=== PATIENT | male | born 1965 | race Caucasian/White ===

== ENCOUNTER 2025-05-13 07:42 | Day surgery (SDC) | payer OTHER ==
[2025-05-13] MEDS ORDERED: NA CHLORIDE 0.9% 500 ML ONE (08:14)
[2025-05-13 08:46] VITALS: BMI 28.7
[2025-05-13 11:18] VITALS: O2SAT 100
[2025-05-13 13:03] VITALS: BP 175/75; TEMP 98.9
== END 2025-05-13 12:59 | disposition home or self-care (01) ==
LOC: DS 07:42
PROVIDERS: ATTEND Radiology Radiation Oncology
DX: D50.9 Iron deficiency anemia, unspecified (principal); D53.8 Other specified nutritional anemias; C15.5 Malignant neoplasm of lower third of esophagus; I10 Essential (primary) hypertension
CPT/HCPCS: 86900; 86850; 86901; 86920 ×2; 36430; P9016 ×2; J7040

== ENCOUNTER 2025-06-09 08:26 | Emergency (ER) | payer OTHER ==
[2025-06-09] MEDS ORDERED: NA CHLORIDE 0.9% 1,000 ML ONE (08:39)
[2025-06-09] MEDS ORDERED: ONDANSETRON 4 MG/2 ML VIAL ONE (08:39)
[2025-06-09] MEDS ORDERED: PANTOPRAZOLE 40 MG INJ ONE ×2 (08:39→10:40)
[2025-06-09 09:37] LABS: Absolute Lymphocytes (CBC) 1.2 K/uL (0.7-4.9); Hematocrit 18.5 % (39.6-49.0); Hemoglobin 6.0 g/dL (13.6-17.9); MCH 26.2 pg (27.0-35.0); MCHC 32.5 g/dL (32.0-36.0); MCV 80.8 fL (80-100); MPV 7.9 fL (7.6-11.3); Nucleated RBC Absolute Count 0.0 (0-0); Nucleated Red Blood Cells % 0.0 % (0-0); RBC Red Blood Cell Count 2.28 M/uL (4.33-5.43); White Blood Count 9.80 thou/uL (4.3-10.9)
[2025-06-09 09:39] LABS: Anisocytosis 1+; Blood Morphology Comment NOTED (NOT SEEN); White Blood Cell Scan OK (OK)
[2025-06-09 09:43] LABS: PT Prothrombin Time 14.8 SECONDS (10-13.0); Protime INR 1.32
[2025-06-09 09:58] LABS: AST/SGOT 13 U/L (15-37); Albumin 2.4 g/dL (3.4-5.0); Albumin/Globulin Ratio 0.8 (1.1-1.8); Alkaline Phosphatase 41 U/L (45-117); Anion Gap 11.9 mEq/L (5.0-15.0); BUN Blood Urea Nitrogen 92 mg/dL (7-18); Globulin 3.1 g/dL (2.3-3.5); Glucose Level 141 mg/dL (74-106); Lipase 48 U/L (13-75); Magnesium 2.7 mg/dL (1.6-2.4); NT PRO-BNP 2094 pg/mL (<125); Potassium 3.9 mEq/L (3.5-5.1); Troponin High Sensitivity 30.0 pg/mL (<58.9)
[2025-06-09 09:59] LABS: ALT/SGPT < 14 U/L (16-61); Bilirubin Indirect, Calculated 0.2 mg/dL (0.2-0.8)
--- NOTE | 2025-06-09 10:29 | EDPHYS ---
Physician Documentation [facility] Name: Sanford Jaimes Age: 59 yrs Sex: Male : 1965 Arrival Date: 06/09/2025 Time: 08:26 Bed 5 Private MD: CHRISTA Physician Bo Oro HPI: 06/09 10:20 This 59 yrs old Male presents to ER via Ambulatory with complaints of nikos Vomiting - blood. 10:20 The patient presents to the emergency department with nausea, vomiting, that is nikos intermittent. Onset: The symptoms/episode began/occurred 2 day(s) ago. Possible causes: cancer, ugi bleed. The symptoms are aggravated by pressure, food , The symptoms are alleviated by nothing. remaining still. Associated signs and symptoms: Pertinent positives: abdominal pain, anorexia, GI bleeding, nausea, vomiting. Severity of symptoms: At their worst the symptoms were moderate today, in the emergency department the symptoms have improved mildly. The patient has experienced similar episodes in the past, multiple times. The patient has not recently seen a physician. Historical: - Allergies: 08:43 Sulfa (Sulfonamide Antibiotics); ss - PMHx: 08:43 enlarge prostate; esophageal cancer (Hypertensive disord); Hypertensive disorder; ss - PSHx: 08:43 I\T\D of perirectal abscess; Tonsillectomy; ss - Immunization history:: Adult Immunizations unknown. - Infectious Disease History:: Denies. - Social history:: Smoking status: Patient reports the use of cigarette tobacco products, smokes one pack cigarettes per day. ROS: 10:21 Constitutional: Negative for fever, chills, and weight loss, Eyes: Negative for injury, nikos pain, redness, and discharge, ENT: Negative for injury, pain, and discharge, Neck: Negative for injury, pain, and swelling, Cardiovascular: Negative for chest pain, palpitations, and edema, Respiratory: Negative for shortness of breath, cough, wheezing, and pleuritic chest pain, Back: Negative for injury and pain, : Negative for injury, bleeding, discharge, and swelling, MS/Extremity: Negative for injury and deformity, Neuro: Negative for headache, weakness, numbness, tingling, and seizure, Psych: Negative for depression, anxiety, suicide ideation, homicidal ideation, and hallucinations, Allergy/Immunology: Negative for hives, rash, and allergies, Endocrine: Negative for neck swelling, polydipsia, polyuria, polyphagia, and marked weight changes, Hematologic/Lymphatic: Negative for swollen nodes, abnormal bleeding, and unusual bruising, 10:21 Abdomen/GI: Positive for nausea, vomiting, abdominal cramps, black/tarry stool, Exam: 10:21 Constitutional: This is a well developed, well nourished patient who is awake, alert, nikos and in no acute distress. Head/Face: Normocephalic, atraumatic. Eyes: Pupils equal round and reactive to light, extra-ocular motions intact. Lids and lashes normal. Conjunctiva and sclera are non-icteric and not injected. Cornea within normal limits. Periorbital areas with no swelling, redness, or edema. ENT: Nares patent. No nasal discharge, no septal abnormalities noted. Tympanic membranes are normal and external auditory canals are clear. Oropharynx with no redness, swelling, or masses, exudates, or evidence of obstruction, uvula midline. Mucous membranes moist. Neck: Trachea midline, no thyromegaly or masses palpated, and no cervical lymphadenopathy. Supple, full range of motion without nuchal rigidity, or vertebral point tenderness. No Meningismus. Chest/axilla: Normal chest wall appearance and motion. Nontender with no deformity. No lesions are appreciated. Cardiovascular: Regular rate and rhythm with a normal S1 and S2. No gallops, murmurs, or rubs. Normal PMI, no JVD. No pulse deficits. Respiratory: Lungs have equal breath sounds bilaterally, clear to auscultation and percussion. No rales, rhonchi or wheezes noted. No increased work of breathing, no retractions or nasal flaring. Back: No spinal tenderness. No costovertebral tenderness. Full range of motion. Male : Normal genitalia with no discharge or lesions. MS/ Extremity: Pulses equal, no cyanosis. Neurovascular intact. Full, normal range of motion., bilateral aka Neuro: Awake and alert, GCS 15, oriented to person, place, time, and situation. Cranial nerves II-XII grossly intact. Motor strength 5/5 in all extremities. Sensory grossly intact. Cerebellar exam normal. Normal gait. Psych: Awake, alert, with orientation to person, place and time. Behavior, mood, and affect are within normal limits. 10:21 ECG was reviewed by the Attending Physician. 10:21 Abdomen/GI: Inspection: abdomen appears normal, Bowel sounds: normal, Palpation: mild abdominal tenderness, in the epigastric area, right upper quadrant and left upper quadrant, Liver: no appreciated palpable abnormalities, Hernia: not appreciated, Vital Signs: 08:29 BP 126 / 89; Pulse 74; Resp 18; Temp 98.9(O); Pulse Ox 100% on R/A; Weight 103.42 kg; ss Height 6 ft. 3 in. ; Pain 0/10; 10:15 BP 133 / 79; Pulse 63; Resp 16; Pulse Ox 100% on R/A; dd2 11:00 BP 116 / 88; Pulse 66; Resp 16; Pulse Ox 100% on R/A; dd2 11:45 BP 114 / 78; Pulse 65; Resp 15; Pulse Ox 100% on R/A; dd2 14:56 BP 130 / 81; Pulse 63; Resp 16; Temp 98; Pulse Ox 100% on R/A; dd2 15:32 dd2 17:43 BP 141 / 83; Pulse 57; Resp 16; Temp 98.3; Pulse Ox 100% ; dd2 18:46 BP 140 / 73; Pulse 57; Resp 16; Temp 98.5; Pulse Ox 100% ; dd2 08:29 Body Mass Index 28.50 (103.42 kg, 190.5 cm) ss 08:29 Pain Scale: Adult ss 15:32 PT REMOVED BP CUFF AND O2 SENSOR, REFUSING VITALS AT THIS TIME. AWARE. dd2 MDM: 08:29 Medical Screening Exam initiated nikos 10:23 Differential diagnosis: Nonspecific abd pain, gastritis, pancreatitis, diverticulitis, nikos viral gastroenteritis, gastroenteritis, gastritis, diverticulitis, hemorrhoids. Differential Diagnosis altered mental status, sepsis, flu. Data reviewed: vital signs, nurses notes, lab test result(s), EKG, radiologic studies, CT scan, plain films. Consideration of Admission/Observation Patient was admitted/placed on observation. Escalation of care including admission/observation considered. I considered the following discharge prescriptions or medication management in the emergency department Medications were administered in the Emergency Department. See MAR. Independent interpretation of the following test(s) in the Emergency Department EKG: See my EKG interpretation above. Test considered but Not performed: Ultrasound no abd usg. Care significantly affected by the following chronic conditions: Hypertension, Obesity, Cancer, bph , esophageal cancer. 06/09 10:16 Order name: Type And Screen [facility] 06/09 08:32 Order name: Basic Metabolic Panel; Complete Time: 10:15 [facility] 06/09 08:32 Order name: CBC with Diff; Complete Time: 10:15 [facility] 06/09 08:32 Order name: LFT's; Complete Time: 10:15 [facility] 06/09 08:32 Order name: Magnesium; Complete Time: 10:15 [facility] 06/09 08:32 Order name: NT PRO-BNP; Complete Time: 10:15 [facility] 06/09 08:32 Order name: PT-INR; Complete Time: 10:15 [facility] 06/09 08:32 Order name: Troponin HS; Complete Time: 10:15 [facility] 06/09 08:32 Order name: Lipase; Complete Time: 10:15 [facility] 06/09 08:32 Order name: UA Rfx Kwame Cult if indicated [facility] 06/09 08:32 Order name: AMMONIA; Complete Time: 10:15 [facility] 06/09 09:40 Order name: CBC Smear Scan; Complete Time: 10:15 [facility] 06/09 10:23 Order name: Bb Add On bd 06/09 10:58 Order name: Packed RBC Leukored [facility] 06/09 08:32 Order name: XRAY Chest (1 view); Complete Time: 11:04 [facility] 06/09 08:39 Order name: Chest Abd Pelvis Wo Con; Complete Time: 11:04 [facility] 06/09 08:32 Order name: Cardiac monitoring; Complete Time: 09:27 [facility] 06/09 08:32 Order name: EKG - Nurse/Tech; Complete Time: 09:27 [facility] 06/09 08:32 Order name: IV Saline Lock; Complete Time: 09:27 [facility] 06/09 08:32 Order name: Labs collected and sent; Complete Time: 09:26 [facility] 06/09 08:32 Order name: O2 Per Protocol; Complete Time: 08:50 [facility] 06/09 08:32 Order name: O2 Sat Monitoring; Complete Time: 08:50 [facility] 06/09 08:32 Order name: IV Saline Lock - Large Bore; Complete Time: 09:26 [facility] 06/09 10:16 Order name: Transfuse; Complete Time: 13:03 [facility] EC:21 Rate is 67 beats/min. QRS Raymond is Normal. ID interval is normal. QT interval is normal. nikos No Q waves. T waves are Normal. Clinical impression: NSR w/ Non-specific ST/T Changes and No evidence of ischemia. Interpreted by me. Reviewed by me. Administered Medications: 09:26 Drug: NS 0.9% IV 1000 ml IV at 1 bolus Per protocol; to be given as a bolus over 60 ll1 minutes Route: IV; Rate: 1 bolus; Site: Port-a-cath; 10:30 Follow up: IV Status: Completed infusion dd2 09:27 Drug: Ondansetron IVP 8 mg IVP once; over 2 minutes Route: IVP; Site: Port-a-cath; ll1 09:27 Drug: Pantoprazole IVP 80 mg IVP once Route: IVP; Site: Port-a-cath; ll1 11:25 Drug: Pantoprazole IV 8 mg/hr IV at 25 ml/hr continuous; (Standard dilution is 80 mg in dd2 250 mL NS) Route: IV; Rate: 25 ml/hr; Site: Port-a-cath; 11:40 Follow up: Response: No adverse reaction dd2 19:04 Follow up: IV Status: Infusion continued upon transfer dd2 Disposition Summary: 06/09/25 10:28 Transfer Ordered Notes: Transfer Location: [facility] nikos Reason: Higher level of care nikos Condition: Fair nikos Problem: new nikos Symptoms: are unchanged nikos Accepting Physician: to [facility](06/09/25 19:06) dd2 Diagnosis - GI Bleed/ Gastrointestinal hemorrhage, unspecified - upper nikos - Acute posthemorrhagic anemia nikos - Malignant neoplasm of esophagus, unspecified nikos - Acute kidney failure, unspecified - on chronic nikos Forms: - Medication Reconciliation Form nikos - SBAR form inkos Critical care time excluding procedures: 10:23 Critical care time: Bedside Care: 30 minutes, Consultation: 15 minutes, Family inkos Intervention: 10 minutes. Total time: 55 minutes Signatures: Dispatcher [employer] Bo Garcia MD MD cha Blanchard, Shelby RN Beatrice Hernandez RN RN ll1 DUSTY ASHLEY RN RN dd2 Corrections: (The following items were deleted from the chart) 08:33 08:33 BASIC METABOLIC PANEL+C.LAB.BRZ ordered. EDMS EDMS 08:33 08:33 CBC+H.LAB.BRZ ordered. EDMS EDMS 08:33 08:33 HEPATIC FUNCTION+C.LAB.BRZ ordered. EDMS EDMS 08:33 08:33 MAGNESIUM+C.LAB.BRZ ordered. EDMS EDMS 08:33 08:33 PROBNP+C.LAB.BRZ ordered. EDMS EDMS 08:33 08:33 PROTIME (+INR)+COAG.LAB.BRZ ordered. EDMS EDMS 08:33 08:33 Troponin High Sensitivity+C.LAB.BRZ ordered. EDMS EDMS 08:33 08:33 LIPASE+C.LAB.BRZ ordered. EDMS EDMS 08:33 08:33 UA Rfx Kwame Cult if indicated+U.LAB.BRZ ordered. EDMS EDMS 08:33 08:33 AMMONIA+C.LAB.BRZ ordered. EDMS EDMS 08:33 08:33 Chest Single View+RAD.RAD.BRZ ordered. EDMS EDMS 08:33 08:33 Chest Abdomen Pelvis W Con+CT.RAD.BRZ ordered. EDMS EDMS 10:17 10:17 TYPE AND SCREEN+BB.LAB.BRZ ordered. EDMS EDMS 10:17 10:17 PACKED RBC LEUKORED+BB.LAB.BRZ ordered. EDMS EDMS 19:06 10:28 to [facility] nikos dd2
--- NOTE | 2025-06-09 10:29 | ER ---
Nurse's Notes [facility] Name: Sanford Jaimes Age: 59 yrs Sex: Male : 1965 Arrival Date: 06/09/2025 Time: 08:26 Bed 5 Private MD: Diagnosis: GI Bleed/ Gastrointestinal hemorrhage, unspecified-upper;Acute posthemorrhagic anemia;Malignant neoplasm of esophagus, unspecified;Acute kidney failure, unspecified-on chronic Presentation: 06/09 08:29 Chief complaint: Spouse and/or significant other states: diarrhea x 1 yesterday evening ss that was reportedly black and coffee ground emesis x 1 this morning. HX of esophageal CA. Coronavirus screen: Client denies travel out of the [place] in the last 14 days. Ebola Screen: Patient denies exposure to infectious person. Patient denies travel to an Ebola-affected area in the 21 days before illness onset. Initial Sepsis Screen: Does the patient meet any 2 criteria? No. Patient's initial sepsis screen is negative. Does the patient have a suspected source of infection? No. Patient's initial sepsis screen is negative. Risk Assessment: Do you want to hurt yourself or someone else? Patient reports no desire to harm self or others. Onset of symptoms was June 08, 2025. 08:29 Method Of Arrival: Ambulatory ss 08:29 Acuity: YOLANDA 3 ss Historical: - Allergies: 08:43 Sulfa (Sulfonamide Antibiotics); ss - PMHx: 08:43 enlarge prostate; esophageal cancer (Hypertensive disord); Hypertensive disorder; ss - PSHx: 08:43 I\T\D of perirectal abscess; Tonsillectomy; ss - Immunization history:: Adult Immunizations unknown. - Infectious Disease History:: Denies. - Social history:: Smoking status: Patient reports the use of cigarette tobacco products, smokes one pack cigarettes per day. Screenin:21 [facility] ED Fall Risk Assessment (Adult) History of falling in the last 3 months, dd2 including since admission No falls in past 3 months (0 pts) Confusion or Disorientation No (0 pts) Intoxicated or Sedated No (0 pts) Impaired Gait No (0 pts) Mobility Assist Device Used No (0 pt) Altered Elimination No (0 pt) Score/Fall Risk Level 0 - 2 = Low Risk Oriented to surroundings, Maintained a safe environment, Educated pt \T\ family on fall prevention, incl call for assistance when getting out of bed, Assessed \T\ reinforced patient's understanding of fall precautions, Hourly rounding (assess needs \T\ fall precautionary measures) done. Abuse screen: Denies threats or abuse. Denies injuries from another. Nutritional screening: No deficits noted. Tuberculosis screening: No symptoms or risk factors identified. Assessment: 09:28 Reassessment: No changes from previously documented assessment. Patient and/or family ll1 updated on plan of care and expected duration. Pain level reassessed. Patient is alert, oriented x 3, equal unlabored respirations, skin warm/dry/pink. 13:03 Reassessment: FIRST UNIT OF BLOOD TRANSFUSING. NO S/S OF TRANSFUSION REACTIONS NOTED. dd2 PT DENIES S/S. SEE V/S FLOW SHEET FOR FULL VITALS. 18:05 Reassessment: second unit of prbc infusing. see v/s flow sheet for v/s. dd2 18:23 Reassessment: REPORT CALLED TO EVITA NOLAN [facility]. dd2 Vital Signs: 08:29 BP 126 / 89; Pulse 74; Resp 18; Temp 98.9(O); Pulse Ox 100% on R/A; Weight 103.42 kg; ss Height 6 ft. 3 in. ; Pain 0/10; 10:15 BP 133 / 79; Pulse 63; Resp 16; Pulse Ox 100% on R/A; dd2 11:00 BP 116 / 88; Pulse 66; Resp 16; Pulse Ox 100% on R/A; dd2 11:45 BP 114 / 78; Pulse 65; Resp 15; Pulse Ox 100% on R/A; dd2 14:56 BP 130 / 81; Pulse 63; Resp 16; Temp 98; Pulse Ox 100% on R/A; dd2 15:32 dd2 17:43 BP 141 / 83; Pulse 57; Resp 16; Temp 98.3; Pulse Ox 100% ; dd2 18:46 BP 140 / 73; Pulse 57; Resp 16; Temp 98.5; Pulse Ox 100% ; dd2 08:29 Body Mass Index 28.50 (103.42 kg, 190.5 cm) ss 08:29 Pain Scale: Adult ss 15:32 PT REMOVED BP CUFF AND O2 SENSOR, REFUSING VITALS AT THIS TIME. AWARE. dd2 ED Course: 08:29 Patient arrived in ED. im 08:29 Bo Oro MD is Attending Physician. nikos 08:38 Amparo Ruano, EVITA is Primary Nurse. ap3 08:43 Triage completed. ss 08:43 Arm band placed on right wrist. ss 09:01 Chest Abd Pelvis Wo Con In Process Unspecified. EDMS 09:27 Beatrice Matias, RN is Primary Nurse. ll1 09:37 XRAY Chest (1 view) In Process Unspecified. EDMS 10:50 initiated transfer to [facility]. bd 10:57 Patient has correct armband on for positive identification. Bed in low position. Call dd2 light in reach. Side rails up X2. Door closed. Noise minimized. Warm blanket given. Pillow given. Verbal reassurance given. Consent for blood and/or blood product transfusion explained by staff, explained by physician, signed by spouse. 10:57 Client placed on continuous cardiac and pulse oximetry monitoring. NIBP monitoring dd2 applied. child monitor on. 11:04 pt accepted in transfer to [facility] rm [id number] Melgar admin approval given by angy Thorpe rn. 11:22 No provider procedures requiring assistance completed. Accessed Port-a-Cath. dd2 MAINTENANCE OF PREVIOUS ACCESSED PORT RT CW. Patient maintains SpO2 saturation greater than 95% on room air. 18:46 Provided Education on: TRANSFER EDUCATION. dd2 18:46 Patient transferred, IV remains in place. dd2 Administered Medications: 09:26 Drug: NS 0.9% IV 1000 ml IV at 1 bolus Per protocol; to be given as a bolus over 60 ll1 minutes Route: IV; Rate: 1 bolus; Site: Port-a-cath; 10:30 Follow up: IV Status: Completed infusion dd2 09:27 Drug: Ondansetron IVP 8 mg IVP once; over 2 minutes Route: IVP; Site: Port-a-cath; ll1 09:27 Drug: Pantoprazole IVP 80 mg IVP once Route: IVP; Site: Port-a-cath; ll1 11:25 Drug: Pantoprazole IV 8 mg/hr IV at 25 ml/hr continuous; (Standard dilution is 80 mg in dd2 250 mL NS) Route: IV; Rate: 25 ml/hr; Site: Port-a-cath; 11:40 Follow up: Response: No adverse reaction dd2 19:04 Follow up: IV Status: Infusion continued upon transfer dd2 Medication: 18:46 VIS not applicable for this client. dd2 Outcome: 10:28 ER care complete, transfer ordered by . nikos 18:46 Transferred by ground EMS to [facility] [place], Transfer form completed. dd2 18:46 Condition: stable 18:46 Instructed on the need for transfer, Demonstrated understanding of instructions, 19:06 Patient left the ED. dd2 Signatures: Dispatcher [employer] EDMS Daisy Ortiz Corey, MD MD cha Blanchard, Shelby RN RN ss Amparo Ruano RN RN [id number] Beatrice Matias RN RN ll1 [place] DIANA RN RN dd2
--- NOTE | 2025-06-09 10:34 | RAD REPORT ---
EXAM: CT CHEST, ABDOMEN AND PELVIS WITHOUT CONTRAST CLINICAL INDICATION: Male, 59 years old. [facility] MAIN Abdominal distention;Chest pain Bed Name: 5 TECHNIQUE: CT chest, abdomen and pelvis was performed, without IV contrast, as per department protoco l. Axial, sagittal and coronal reconstructions were obtained. One or more of the following dose reduction techniques were used: Automated exposure control, adjustment of the mA and/or kV according to the patient size, and/or iterative reconstruction. Unless otherwise specified, incidental findings do not require dedicated imaging follow-up. COMPARISON: No prior exam. FINDINGS: The lack of intravenous contrast limits the sensitivity of this exam for evaluation of solid visceral organs, vascular structures, and retroperitoneum. Chest: LOWER NECK/CHEST WALL: Visualized thyroid gland shows bulky appearance without discrete nodules on CT . LUNGS AND AIRWAYS: Airways are clear. No evidence of airspace or interstitial process. No nodules. El evation of the left hemidiaphragm. PLEURA: No pleural effusion. No pneumothorax. Hemidiaphragms are normally positioned. MEDIASTINUM AND LYMPH NODES: No mediastinal mass or fluid collection. Normal size mediastinal, hilar, and axillary lymph nodes. THORACIC AORTA: Fusiform aneurysmal dilation of the ascending thoracic aorta measuring 4.7 cm in mauro troy. PULMONARY ARTERIES: Normal caliber. HEART: Unremarkable. Abdomen/Pelvis LIVER: Normal in size and contour. No focal lesion. GALLBLADDER/BILE DUCTS: Small dependent gallstones. PANCREAS: No mass, ductal dilation, or yas-pancreatic fluid. SPLEEN: Normal size. No focal lesion. ADRENALS: Normal; no mass. KIDNEYS AND URETERS: Normal size and contour. No hydronephrosis. GASTROINTESTINAL TRACT: Nodular wall thickening at the gastric cardia extending along the lesser curv ature. Stomach is non-dilated. Small bowel has normal course and caliber. No colonic wall thickening or pericolonic inflammatory changes. PERITONEUM: No free fluid. LYMPH NODES: Mildly prominent epigastric lymph nodes up to 1.3 cm in short axis. ABDOMINAL AORTA AND OTHER VESSELS: Normal caliber aorta and IVC. URINARY BLADDER: Normal contour. REPRODUCTIVE ORGANS: No pathologic process. MUSCULOSKELETAL: No acute or suspicious osseous abnormality. ADDITIONAL FINDINGS: Prostatomegaly IMPRESSION: No acute or significant abnormalities in the chest. Nodular wall thickening at the gastric cardia extending along the lesser curvature. This could relate to regional underdistention, however additional evaluation by contrast-enhanced CT preferably with oral contrast may be helpful, versus endoscopy, to exclude an underlying mass. Gastroenterology consu ltation recommended. Other incidental findings including cholelithiasis.
--- NOTE | 2025-06-09 10:36 | RAD REPORT ---
EXAMINATION: ONE VIEW CHEST XR CLINICAL INDICATION: Male, 59 years old.,COUGH TECHNIQUE: Frontal chest projection is submitted. Examination is limited by patient positioning and t echnique. COMPARISON: 02/10/2025 FINDINGS: Kyphotic positioning limits evaluation. Right Port-A-Cath in place The lungs are well inflated and cl ear. No pneumothorax or sizable effusion. The heart is normal in size. Mediastinal contours are unremarkable. IMPRESSION: No acute intrathoracic abnormalities.
[2025-06-09] MEDS ORDERED: NA CHLORIDE 0.9% 250 ML ONE ×3 (10:40→17:33)
[2025-06-09 13:23] LABS: Sqamous Epithelial None Seen /HPF (None Seen); Urine Culture Reflex Order NOT NEEDED; Urine Microscopic Reflex YN ORDER UMIC
[2025-06-09 19:11] VITALS: O2SAT 100
[2025-06-09 19:21] VITALS: BP 140/73; TEMP 98.5
== END 2025-06-09 19:06 | disposition short-term general hospital (02) ==
LOC: ER 08:26
PROC: 30233N1 Transfusion of Nonautologous Red Blood Cells into Peripheral Vein, Percutaneous Approach (ICD-10-PCS; principal; 2025-06-09)
DX: D62 Acute posthemorrhagic anemia (principal); I12.9 Hypertensive chronic kidney disease with stage 1 through stage 4 chronic kidney disease, or unspecified chronic kidney disease; N18.9 Chronic kidney disease, unspecified; N17.9 Acute kidney failure, unspecified; C15.9 Malignant neoplasm of esophagus, unspecified; F17.210 Nicotine dependence, cigarettes, uncomplicated
CPT/HCPCS: 96365; 96361; 93005; 85025; 81001; 80048; 36415; 82140; 86900; 83735; 86850; 85610; 86901; 80076; 86920 ×2; 84484; 83690; 83880; 71250; 74176; 71045; 96375; 99285; 96366; 36430; J2470 ×2; J2405; P9016 ×2; J7050 ×3; J7030

== ENCOUNTER 2025-06-24 10:36 | Emergency (ER) | payer OTHER ==
[2025-06-24 11:52] LABS: Absolute Lymphocytes (CBC) 0.8 K/uL (0.7-4.9); Hematocrit 16.7 % (39.6-49.0); MCH 28.2 pg (27.0-35.0); MCHC 33.0 g/dL (32.0-36.0); MCV 85.3 fL (80-100); MPV 8.4 fL (7.6-11.3); Nucleated RBC Absolute Count 0.0 (0-0); Nucleated Red Blood Cells % 0.1 % (0-0); RBC Red Blood Cell Count 1.96 M/uL (4.33-5.43); White Blood Count 9.20 thou/uL (4.3-10.9)
[2025-06-24 11:59] LABS: Blood Morphology Comment NOTED (NOT SEEN); Hemoglobin 5.5 g/dL (13.6-17.9); White Blood Cell Scan OK (OK)
[2025-06-24 12:05] LABS: Anion Gap 10.3 mEq/L (5.0-15.0); BUN Blood Urea Nitrogen 71.0 mg/dL (7-18); Glucose Level 139.0 mg/dL (74-106); Potassium 4.3 mEq/L (3.5-5.1)
[2025-06-24] MEDS ORDERED: NA CHLORIDE 0.9% 250 ML ONE (13:11)
--- NOTE | 2025-06-24 17:26 | EDPHYS ---
Physician Documentation [facility] Name: Sanford Jaimes Age: 59 yrs Sex: Male : 1965 Arrival Date: 06/24/2025 Time: 10:36 Bed 16 Private MD: ED Physician Chandan Ro HPI: 06/24 12:29 This 59 yrs old Male presents to ER via Wheelchair with complaints of Weakness, ms3 Nausea/Vomiting. 12:29 59-year-old male with past medical history of enlarged prostate, esophageal cancer, ms3 hypertension presents to the emergency department after having labs obtained at the cancer center showing a hemoglobin that was low. Patient denies nausea, vomiting, emesis, or melena.. Historical: - Allergies: 10:47 Sulfa (Sulfonamide Antibiotics); dd2 - PMHx: 10:47 enlarge prostate; esophageal cancer (Hypertensive disord); Hypertensive disorder; dd2 - PSHx: 10:47 I\T\D of perirectal abscess; Tonsillectomy; dd2 - Immunization history:: Adult Immunizations up to date. - Infectious Disease History:: Denies. - Social history:: Smoking status: Patient reports the use of cigarette tobacco products, smokes one pack cigarettes per day. ROS: 12:29 Constitutional: Negative for fever, and chills. Cardiovascular: Negative for chest ms3 pain, and palpitations. Respiratory: Negative for shortness of breath, cough, wheezing, and pleuritic chest pain, Abdomen/GI: Negative for abdominal pain, nausea, vomiting, diarrhea, and constipation, Skin: Negative for injury, rash, and discoloration, Exam: 12:29 Constitutional: This is a well developed, well nourished patient who is awake, alert, ms3 and in no acute distress. Cardiovascular: Regular rate and rhythm with a normal S1 and S2. No gallops, murmurs, or rubs. Normal PMI, no JVD. No pulse deficits. Respiratory: Lungs have equal breath sounds bilaterally, clear to auscultation and percussion. No rales, rhonchi or wheezes noted. No increased work of breathing, no retractions or nasal flaring. Abdomen/GI: Soft, non-tender, with normal bowel sounds. No distension or tympany. No guarding 17:06 ECG was reviewed by the Attending Physician. ms3 Vital Signs: 10:45 BP 137 / 92; Pulse 71; Resp 16; Temp 98.9(O); Pulse Ox 100% ; Pain 0/10; dd2 13:37 BP 137 / 76; Pulse 61; Resp 17; Temp 97.9; Pulse Ox 100% ; bp 14:30 BP 134 / 79; Pulse 62; Resp 20; Temp 98; Pulse Ox 100% ; bp 16:00 BP 153 / 82; Pulse 63; Resp 14; Temp 98; Pulse Ox 100% ; bp 17:47 BP 157 / 83; Pulse 61; Resp 15; Pulse Ox 100% ; bp 10:45 Pain Scale: Adult dd2 MDM: 10:55 Medical Screening Exam initiated ms3 16:10 Management of patient was discussed with the following: Sales Data Analyst: Dr Foley- ms3 Recommends 2 units PRBC transfusion and patient be observed for 12 hours in the hospital to ensure patient is not bleeding.. ED course: Discussed plan for observation after blood transfusion with patient. Patient declined stating he does not wish to stay in the Emergency Department. Discussed my conversation with Dr. Foley with patient. Discussed with patient we are concerned he may be bleeding requiring further interventions. Patient declined stating he will just follow-up with Dr. Foley in clinic tomorrow.. 17:27 Data reviewed: vital signs, nurses notes, lab test result(s), EKG, and as a result, I ms3 will discharge patient. Consideration of Admission/Observation Escalation of care including admission/observation considered. Patient declines observation in the hospital. I considered the following discharge prescriptions or medication management in the emergency department. Independent interpretation of the following test(s) in the Emergency Department EKG: See my EKG interpretation above. ED course: Patient requesting to be discharged as his blood transfusion has completed. Patient to follow-up Dr. Vital tomorrow. Patient understands agrees with plan. All questions were answered. On reevaluation patient alert and oriented x 4, no apparent distress, nontoxic-appearing, speaking full sentences. . 17:29 Counseling: I had a detailed discussion with the patient and/or guardian regarding the ms3 historical points, exam findings, and any diagnostic results supporting the discharge/admit diagnosis, lab results, the need for outpatient follow up, to return to the emergency department if symptoms worsen or persist or if there are any questions or concerns that arise at home. Refusal of service: The patient/guardian displays adequate decision making capability and despite a detailed discussion of alternatives, benefits, risks, and consequences refuses: Admission to the hospital for further work-up and treatment. ED course: Patient has decided to refuse observation At this time, I reevaluated the patient and discussed the following: a. Capacity: The patient has the capacity to communicate, understand information, and logically process the decision making process. b. Communication of risks: At bedside, I discussed potential risks, outcomes, and alternative approaches in a patient-centered manner. The patient was informed of the specific risks of unidentified bleeding, including worsening condition and . The patient understands that they are welcome to return at any time to complete the workup. Patient is discharged from my care with informed refusal.. 06/24 10:41 Order name: Basic Metabolic Panel; Complete Time: 16:06 ms3 06/24 10:41 Order name: CBC with Diff; Complete Time: 16:06 ms3 06/24 10:59 Order name: Type And Screen ms3 06/24 12:00 Order name: CBC Smear Scan; Complete Time: 16:06 EDMS 06/24 12:04 Order name: Bb Add On bd 06/24 12:39 Order name: Packed RBC Leukored EDMS 06/24 10:41 Order name: Cardiac monitoring; Complete Time: 11:47 ms3 06/24 10:41 Order name: EKG - Nurse/Tech; Complete Time: 11:49 ms3 06/24 10:41 Order name: IV Saline Lock; Complete Time: 11:47 ms3 06/24 10:41 Order name: Labs collected and sent; Complete Time: 11:47 ms3 06/24 10:41 Order name: O2 Per Protocol; Complete Time: 11:47 ms3 06/24 10:41 Order name: O2 Sat Monitoring; Complete Time: 11:47 ms3 EC:06 Rate is 58 beats/min. Rhythm is regular. Left axis deviation noted. SD interval is ms3 normal. QRS interval is normal. Clinical impression: Sinus bradycardia. Interpreted by me. Reviewed by me. Administered Medications: No medications were administered Disposition Summary: 06/24/25 17:26 Discharge Ordered Notes: Location: Home ms3 Condition: Stable ms3 Diagnosis - Anemia, unspecified ms3 - Esophageal cancer ms3 - Chronic kidney disease, unspecified ms3 Followup: ms3 - With: Private Physician - When: Tomorrow - Reason: Re-evaluation by your physician Discharge Instructions: - Discharge Summary Sheet ms3 - Anemia ms3 - Blood Transfusion, Adult ms3 Forms: - Medication Reconciliation Form ms3 - Antibiotic Education ms3 - Prescription Opioid Use ms3 - Patient Portal Instructions ms3 - Leadership Thank You Letter ms3 Critical care time excluding procedures: 16:23 Critical care time: Bedside Care: 35 minutes, Consultation: 5 minutes. Total time: 40 ms3 minutes Signatures: Dispatcher [employer] EDMS Chandan Ro DO DO ms3 DUSTY ASHLEY RN RN dd2 Corrections: (The following items were deleted from the chart) 10:41 10:41 BASIC METABOLIC PANEL+C.LAB.BRZ ordered. EDMS EDMS 10:41 10:41 CBC+H.LAB.BRZ ordered. EDMS EDMS 10:41 10:41 Chest Single View+RAD.RAD.BRZ ordered. EDMS EDMS 10:59 10:41 HEPATIC FUNCTION+C.LAB.BRZ ordered. EDMS EDMS 10:59 10:41 MAGNESIUM+C.LAB.BRZ ordered. EDMS EDMS 10:59 10:41 PROBNP+C.LAB.BRZ ordered. EDMS EDMS 10:59 10:41 Troponin High Sensitivity+C.LAB.BRZ ordered. EDMS EDMS
--- NOTE | 2025-06-24 17:26 | ER ---
Nurse's Notes [facility] Name: Sanford Jaimes Age: 59 yrs Sex: Male : 1965 Arrival Date: 06/24/2025 Time: 10:36 Bed 16 Private MD: Diagnosis: Anemia, unspecified;Esophageal cancer;Chronic kidney disease, unspecified Presentation: 06/24 10:45 Chief complaint: Patient states: HE WAS SENT HERE BY CANCER MD FOR 2 UNITS OF BLOOD FOR dd2 HGB OF 5.7. PT REPORTS NAUSEA AND VOMITING BETTER SINCE RECEIVING MEDICATIONS YESTERDAY AND IS HERE FOR BLOOD TRANSFUSION ONLY. Coronavirus screen: At this time, the client does not indicate any symptoms associated with coronavirus-19. Ebola Screen: No symptoms or risks identified at this time. Initial Sepsis Screen: Does the patient meet any 2 criteria? No. Patient's initial sepsis screen is negative. Does the patient have a suspected source of infection? No. Patient's initial sepsis screen is negative. Risk Assessment: Do you want to hurt yourself or someone else? Patient reports no desire to harm self or others. Onset of symptoms was June 24, 2025. 10:45 Method Of Arrival: Wheelchair dd2 10:45 Acuity: YOLANDA 3 dd2 Triage Assessment: 10:47 General: Appears in no apparent distress. Behavior is cooperative, appropriate for age, dd2 agitated. Pain: Denies pain. GI: Reports nausea, vomiting, THAT WAS TREATED YESTERDAY. Historical: - Allergies: 10:47 Sulfa (Sulfonamide Antibiotics); dd2 - PMHx: 10:47 enlarge prostate; esophageal cancer (Hypertensive disord); Hypertensive disorder; dd2 - PSHx: 10:47 I\T\D of perirectal abscess; Tonsillectomy; dd2 - Immunization history:: Adult Immunizations up to date. - Infectious Disease History:: Denies. - Social history:: Smoking status: Patient reports the use of cigarette tobacco products, smokes one pack cigarettes per day. Screenin:48 [facility] ED Fall Risk Assessment (Adult) History of falling in the last 3 months, bp including since admission No falls in past 3 months (0 pts) Confusion or Disorientation No (0 pts) Intoxicated or Sedated No (0 pts) Impaired Gait No (0 pts) Mobility Assist Device Used No (0 pt) Altered Elimination No (0 pt) Score/Fall Risk Level 0 - 2 = Low Risk Oriented to surroundings. Abuse screen: Denies threats or abuse. Denies injuries from another. Nutritional screening: No deficits noted. Tuberculosis screening: No symptoms or risk factors identified. Assessment: 11:48 General: SEE TRIAGE NOTE. bp 13:38 Reassessment: No changes from previously documented assessment. Patient is alert, bp oriented x 3, equal unlabored respirations, skin warm/dry/pink. 14:30 Reassessment: Patient appears in no apparent distress at this time. Patient is alert, bp oriented x 3, equal unlabored respirations, skin warm/dry/pink. 17:47 Reassessment: Patient appears in no apparent distress at this time. Patient is alert, bp oriented x 3, equal unlabored respirations, skin warm/dry/pink. Vital Signs: 10:45 BP 137 / 92; Pulse 71; Resp 16; Temp 98.9(O); Pulse Ox 100% ; Pain 0/10; dd2 13:37 BP 137 / 76; Pulse 61; Resp 17; Temp 97.9; Pulse Ox 100% ; bp 14:30 BP 134 / 79; Pulse 62; Resp 20; Temp 98; Pulse Ox 100% ; bp 16:00 BP 153 / 82; Pulse 63; Resp 14; Temp 98; Pulse Ox 100% ; bp 17:47 BP 157 / 83; Pulse 61; Resp 15; Pulse Ox 100% ; bp 10:45 Pain Scale: Adult dd2 ED Course: 10:39 Patient arrived in ED. al6 10:40 Chandan Ro DO is Attending Physician. ms3 10:47 Triage completed. dd2 10:47 Arm band placed on right wrist. dd2 11:28 Rajiv Feldman, RN is Primary Nurse. bp 11:47 Initial lab(s) drawn, by me, sent to lab. T\T\S collected, blood band applied to patient. bp Accessed Port-a-Cath. Clean \T\ dry. Dressing intact. Good blood return. Flushes easily. 11:48 Patient has correct armband on for positive identification. bp 13:38 Consent for blood and/or blood product transfusion explained by staff, explained by bp physician, signed by patient. 17:48 No provider procedures requiring assistance completed. PORT A CATH IN PLACE. bp Administered Medications: No medications were administered Medication: 11:48 VIS not applicable for this client. bp Outcome: 17:26 Discharge ordered by . ms3 17:48 Discharged to home via wheelchair, with family, bp 17:48 Condition: stable 17:48 Discharge instructions given to patient, Instructed on discharge instructions, follow up and referral plans. Demonstrated understanding of instructions, follow-up care, 17:48 Patient left the ED. bp Signatures: Rajiv Feldman, RN RN bp Chandan Ro DO DO ms3 DUSTY ASHLEY, EVITA RN dd2 Denisse [id number]
[2025-06-24] MEDS ORDERED: HEPARIN 500 UNIT/5 ML SYR IV ONE (17:36)
[2025-06-24 17:55] VITALS: O2SAT 100
[2025-06-24 17:57] VITALS: TEMP 98
[2025-06-24 18:00] VITALS: BP 157/83
== END 2025-06-24 17:48 | disposition home or self-care (01) ==
LOC: ER 10:36
PROC: 30233N1 Transfusion of Nonautologous Red Blood Cells into Peripheral Vein, Percutaneous Approach (ICD-10-PCS; principal; 2025-06-24)
DX: D64.9 Anemia, unspecified (principal); I12.9 Hypertensive chronic kidney disease with stage 1 through stage 4 chronic kidney disease, or unspecified chronic kidney disease; N18.9 Chronic kidney disease, unspecified; C15.9 Malignant neoplasm of esophagus, unspecified; F17.210 Nicotine dependence, cigarettes, uncomplicated
CPT/HCPCS: 93005; 85025; 80048; 36415; 86900; 86850; 86901; 86920 ×2; 99284; 36430; J1642; P9016 ×2; J7050

== ENCOUNTER 2025-06-26 07:50 | Day surgery (SDC) | payer OTHER ==
[2025-06-26] MEDS ORDERED: NA CHLORIDE 0.9% 500 ML ONE (08:28)
[2025-06-26 12:32] VITALS: O2SAT 100; BMI 25.6
[2025-06-26] MEDS: HEPARIN 500 UNIT/5 ML SYR IV ONE (12:48)
[2025-06-26 13:02] VITALS: BP 169/82; TEMP 97.3
== END 2025-06-26 12:51 | disposition home or self-care (01) ==
LOC: DS 07:50
PROVIDERS: ATTEND Radiology Radiation Oncology
DX: D50.9 Iron deficiency anemia, unspecified (principal); D53.8 Other specified nutritional anemias; I10 Essential (primary) hypertension; C15.5 Malignant neoplasm of lower third of esophagus
CPT/HCPCS: 86900; 86850; 86901; 86920 ×3; 36430; 96523; J1642; P9016 ×2; J7040